=== PATIENT | female | born 1985 | race Caucasian/White ===

== ENCOUNTER 2024-01-09 00:20 | Emergency (ER) | payer OTHER, SELFPAY ==
[2024-01-09 00:23] VITALS: BP 137/83; PULSE 83; RESP 16; TEMP 36.7; O2SAT 99
[2024-01-09] MEDS: HYDROcodone/acetaminophen (*CRX) 5-325 MG TABLET 1 TAB PO (02:04)
--- NOTE | 2024-01-09 03:11 | ED.BACK ---
HPI - Back Pain/Injury General Chief Complaint: Back Pain/Injury <Sara Arce PA-C - Last Filed: 01/09/24 03:26> Stated Complaint: back pain radiating to left foot <Sara Arce PA-C - Last Filed: 01/09/24 03:26> Time Seen by Provider: 01/09/24 03:03 <Sara Arce PA-C - Last Filed: 01/09/24 03:26> History of Present Illness HPI Narrative: 38-year-old female history of sciatica is urgency department for sciatic pain. States she normally has sciatica on the R side but today started having it on the L side. Patient states this morning she began having pain that travels from her left lower back that travel down the posterior aspect of her leg and wraps around the lateral aspect of her lower leg and into her foot. She states the pain waxes and wanes and at times she has difficulty getting comfortable. She reports taking multiple rounds of 800 mg of ibuprofen today and Tylenol without improvement which prompted her to come to the ER. She denies saddle anesthesia, bowel or bladder incontinence, bladder retention, extremity weakness, recent surgeries or procedures to her back, immunosuppression, fever, nausea vomiting, abdominal pain. <TEODORA Gr Last Filed: 01/09/24 03:26> Related Data Allergies/Adverse Reactions: Allergies Allergy/AdvReac Type Severity Reaction Status Date / Time No Known Allergies Allergy Mild Unverified 01/09/24 00:25 <Sara Arce PA-C - Last Filed: 01/09/24 03:26> Review of Systems Review of Systems: CONSTITUTIONAL: Denies fever, chills, or sweats. EYES: Denies visual changes, redness, or discharge. ENT: Denies rhinorrhea, congestion, sore throat, or otalgia. CARDIOVASCULAR: Denies chest pain, palpitations, or edema. RESPIRATORY: Denies cough or dyspnea. GASTROINTESTINAL: Denies abdominal pain, nausea, vomiting, or diarrhea. GENITOURINARY: Denies dysuria or hematuria. SKIN: Denies rash or itching. MUSCULOSKELETAL: Denies back pain, joint pain, or myalgia. NEUROLOGIC: See HPI PSYCHIATRIC: Denies anxiety or depression. <TEODORA Gr Last Filed: 01/09/24 03:26> Exam Narrative: GENERAL: Well-appearing, well-nourished, and in no acute distress. HEAD: Normocephalic, atraumatic. EYES: PERRLA and EOMI. ENT: Nares clear, no rhinorrhea or epistaxis. Mucous membranes moist. NECK: Supple. BACK: No midline thoracolumbar spinous tenderness, step-offs or deformities. Tenderness to the left SI joint without overlying skin changes or deformities. No tenderness to the piriformis. Straight leg raise negative bilaterally CHEST: Clear to auscultation. No respiratory distress. HEART: Regular rate and rhythm. No murmur heard. Normal peripheral pulses. ABDOMEN: Soft, nontender, nondistended, normal active bowel sounds. EXTREMITIES: Normal range of motion. No edema. DP pulses 2+. SKIN: Warm, dry, no rash. NEURO: No focal deficits. Alert and oriented x3. No saddle anesthesia, sensation intact throughout lower extremities. Hip flexion, dorsiflexion plantar flexion strength 5/5. <TEODORA Gr Last Filed: 01/09/24 03:26> Course Vital Signs Vital signs: Vital Signs Temperature 98.1 F 01/09/24 00:23 Pulse Rate 83 01/09/24 00:23 Respiratory Rate 16 01/09/24 00:23 Blood Pressure 137/83 01/09/24 00:23 Pulse Oximetry 99 01/09/24 00:23 Oxygen Delivery Room Air 01/09/24 00:23 Temperature 98.1 F 01/09/24 00:23 Pulse Rate 83 01/09/24 00:23 Respiratory Rate 16 01/09/24 00:23 Blood Pressure 137/83 01/09/24 00:23 Pulse Oximetry 99 01/09/24 00:23 Oxygen Delivery Room Air 01/09/24 00:23 <TEODORA Gr Last Filed: 01/09/24 03:26> Vital Signs Temperature 98.1 F 01/09/24 00:23 Pulse Rate 83 01/09/24 00:23 Respiratory Rate 16 01/09/24 00:23 Blood Pressure 137/83 01/09/24 00:23 Pulse Oximetry 99 01/09/24 00:23 Oxygen Delivery Room Air 01/09/24
[2024-01-09] MEDS: LIDOCAINE 5% PATCH 1 PATCH TRANSDERM (03:31)
[2024-01-09] MEDS: dexAMETHasone SOD PHOS INJ 10 MG/ML 1 ML VIAL IM (03:32)
[2024-01-09] MEDS: CYCLOBENZAPRINE HCL 10 MG TABLET PO (03:32)
[2024-01-09] MEDS: KETOROLAC 30 MG/ML VIAL (*BKC) 15 MG IM (05:47)
[2024-01-09] MEDS: GABAPENTIN 100 MG CAPSULE PO (05:47)
[2024-01-09 06:35] VITALS: BP 131/82; PULSE 72; RESP 16; O2SAT 99
== END 2024-01-09 06:38 | disposition home or self-care (01) ==
PROVIDERS: Emergency Provider Emergency Medicine
DX: M54.42 Lumbago with sciatica, left side (principal)
CPT/HCPCS: 96372; 99284; A9270; J1100; J1885